=== PATIENT | male | born 1985 | race Caucasian/White ===

== ENCOUNTER 2017-09-12 21:51 | Emergency (ER) | payer SELFPAY ==
[~2017-09-12] VITALS: Ht 175.3 cm; Wt 110.6 kg
[~2017-09-12 21:51] MED LIST: AMOXICILLIN500 MG OR; FISH OIL1000 MG OR; FISH OIL1000 MG PO; GARLIC100 MG OR; GINGER EXTRA250 MG OR; MAREPA1000 MG OR; MULTI VIT OR; MULTIVITAMI1 OR; NO MEDS; TUMS500 MG OR; ULTRAM50 M1 PO
[2017-09-12 23:19] LABS: URINE BILIRUBIN - DIPSTICK NEGATIVE (NEGATIVE); URINE BLOOD DIPSTICK NEGATIVE (NEGATIVE); URINE CLARITY CLEAR; URINE COLOR YELLOW; URINE GLUCOSE - DIPSTICK NEGATIVE (NEGATIVE); URINE KETONE NEGATIVE (NEGATIVE); URINE LEUK ESTERASE NEGATIVE (NEGATIVE); URINE NITRITE - DIPSTICK NEGATIVE (Negative); URINE PROTEIN - DIPSTICK NEGATIVE (NEG-TRACE)
[2017-09-12] MEDS ORDERED: ULTRAM50 M1 PO (23:50)
[2017-09-12] MEDS ORDERED: FLEXERIL PO (23:50)
[2017-09-12 23:58] VITALS: BP 142/77
== END 2017-09-12 23:55 | disposition home or self-care (01) | DRG 563 ==
LOC: ED 21:51
PROVIDERS: Emergency Medicine
DX: S39.012A Strain of muscle, fascia and tendon of lower back, initial encounter (principal); M62.830 Muscle spasm of back; X50.1XXA Overexertion from prolonged static or awkward postures, initial encounter; Y93.E9 Activity, other interior property and clothing maintenance; Y92.009 Unspecified place in unspecified non-institutional (private) residence as the place of occurrence of the external cause; R93.7 Abnormal findings on diagnostic imaging of other parts of musculoskeletal system

== ENCOUNTER 2018-05-15 21:58 | Emergency (ER) | payer BC ==
[~2018-05-15] VITALS: Ht 175.3 cm; Wt 112.2 kg
[~2018-05-15 21:58] MED LIST changes: +FLEXERIL PO
[2018-05-16] MEDS ORDERED: KEFLEX500 M1 PO (00:32)
[2018-05-16] MEDS ORDERED: BENADRYL 50MG C50 MG PO (00:32)
[2018-05-16 00:50] VITALS: BP 122/63
== END 2018-05-16 00:50 | disposition home or self-care (01) | DRG 918 ==
LOC: ED 21:58
DX: T63.481A Toxic effect of venom of other arthropod, accidental (unintentional), initial encounter (principal); W57.XXXA Bitten or stung by nonvenomous insect and other nonvenomous arthropods, initial encounter; Y93.H9 Activity, other involving exterior property and land maintenance, building and construction; Y92.007 Garden or yard of unspecified non-institutional (private) residence as the place of occurrence of the external cause